=== PATIENT | female | born 1990 | race Caucasian/White ===

== ENCOUNTER 2021-07-12 11:12 | Emergency (ER) | payer OTHER, SELFPAY ==
--- NOTE | 2021-07-12 11:22 | PC.NURSE ---
Ambulatory out of waiting room. Pt has IV in place from EMS. Security called to bring pt in to have IV removed.
--- NOTE | 2021-07-12 11:29 | PC.NURSE ---
Digna SHIPLEY called to find pt to bring her in to have IV removed.
--- NOTE | 2021-07-12 11:51 | PC.NURSE ---
Brought back to ED by [place] police. Pt requesting to be seen.
== END 2021-07-12 11:22 | disposition left against medical advice (07) ==
DX: Z53.21 Procedure and treatment not carried out due to patient leaving prior to being seen by health care provider (principal)
CPT/HCPCS: 99199

== ENCOUNTER 2021-07-12 11:49 | Emergency (ER) | payer OTHER, SELFPAY ==
[2021-07-12 12:01] VITALS: BP 130/74; PULSE 116; RESP 16; TEMP 36.6; O2SAT 100
[2021-07-12 13:41] LABS: Add Urine Microscopic? YES; Appearance Urine Cloudy (Clear); Bacteria Urine Trace /hpf; Bilirubin Urine Negative (Negative); Blood Urine Negative (Negative); Color Urine Yellow (Yellow); Glucose Urine UA Negative (Negative); Ketones Urine 1+ mg/dL (Negative); Leukocyte Esterase Ur 2+ LEU/UL (Negative); Nitrate Urine Negative (Negative); Protein Urine 2+ mg/dL (Negative); Specific Grav Ur 1.018 (1.001-1.035)
--- NOTE | 2021-07-12 13:56 | PC.NURSE ---
Pt at Intake desk asking to have SL removed as she States I'M going to leave. SL removed pt tolerated well, ambulated out of ED with steady gait.
== END 2021-07-12 13:56 | disposition left against medical advice (07) ==
LOC: ANHED 14:35
PROVIDERS: Emergency Provider General Practice
DX: E86.0 Dehydration (principal)
CPT/HCPCS: 81001; 81025; 99199

== ENCOUNTER 2023-05-10 21:08 | Emergency (ER) | payer OTHER, SELFPAY ==
--- NOTE | ~2023-05-10 | XR_ITS ---
EXAM: XR finger 4th RT min 2V DATE: 05/10/2023 22:52 HISTORY: laceration from machete, r/o fb/fx . COMPARISON: None available. FINDINGS: Normal mineralization. No fracture or dislocation. No lytic or blastic lesion. Joint space s are maintained. No erosion or periosteal change. Soft tissues within normal limits. IMPRESSION: No acute osseous finding in the right fourth finger. No radiopaque foreign body. Reviewed, dictated and finalized at location K.
[2023-05-10 21:09] VITALS: BP 134/102; PULSE 145; RESP 16; TEMP 36.6; O2SAT 97
--- NOTE | 2023-05-10 21:25 | PC.NURSE ---
Patient's heart rate was obtained again at 150bpm. EKG ordered.
--- NOTE | 2023-05-10 21:26 | ECG_ITS ---
Measurements Intervals [place] Rate: 135 P: 69 IA: 130 QRS: 48 QRSD: 74 T: 49 QT: 361 QTc: 541 Interpretive Statements SINUS TACHYCARDIA OTHERWISE NORMAL ECG NO PREVIOUS ECG AVAILABLE FOR COMPARISON Electronically Signed On 05-11-2023 7:55:24 CDT by Elfego Mahajan M.D.
--- NOTE | 2023-05-10 22:45 | ED.WOUNDLAC ---
HPI - Wound/Laceration General Chief Complaint: Wound/Laceration <PRATIMA Thornton Last Filed: 05/10/23 23:48> Stated Complaint: R ring finger lac <PRATIMA Thornton Last Filed: 05/10/23 23:48> Time Seen by Provider: 05/10/23 22:21 <PRATIMA Thornton Last Filed: 05/10/23 23:48> Source: patient <PRATIMA Thornton Last Filed: 05/10/23 23:48> Mode of arrival: ambulatory <PRATIMA Thornton Last Filed: 05/10/23 23:48> Limitations: no limitations <PRATIMA Thornton Last Filed: 05/10/23 23:48> History of Present Illness HPI narrative: Patient is a 32-year-old female who presents to ED with report of a laceration to her right fourth digit. Patient reports she was sharpening her machete when her hand slipped and she sustained a laceration to her right fourth digit, just distal to her DIP joint. No active bleeding upon the time of my evaluation. Patient's tetanus status up-to-date around 7 years ago. Denies any numbness or tingling. <PRATIMA Thornton Last Filed: 05/10/23 23:48> Related Data Allergies/Adverse Reactions: Allergies Allergy/AdvReac Type Severity Reaction Status Date / Time No Known Allergies Allergy Verified 05/10/23 23:34 <PRATIMA Thornton Last Filed: 05/10/23 23:48> Review of Systems Review of Systems: CONSTITUTIONAL: Denies fever, chills, or sweats. SKIN: See HPI. MUSCULOSKELETAL: See HPI. NEUROLOGIC: Denies tingling, numbness, or weakness. <PRATIMA Thornton Last Filed: 05/10/23 23:48> All systems reviewed & are unremarkable except as noted in HPI and below <PRATIMA Thornton Last Filed: 05/10/23 23:48> Exam Narrative: GENERAL: Well appearing, well-nourished, non-toxic, in no acute distress. HEAD: Normocephalic, atraumatic. NECK: Supple. No adenopathy, no masses. RESPIRATORY: Airway patent, respirations nonlabored. CARDIOVASCULAR: Regular rate and rhythm without murmurs, rubs, or gallops. Radial pulses 2+ and equal bilaterally. MUSCULOSKELETAL: Moves all extremities. Strength/ROM intact without gross deformities. Full ROM of R 4th digit. Lateral laceration, approx 2cm, present to flexor surface of R 4th digit just distal to DIP joint extending slightly laterally to lateral finger edge. No active bleeding. Sensation intact. SKIN: Warm, dry, normal color. No rashes. NEURO: A&O X3. Speech clear. Cranial nerves II-XII grossly intact. Steady gait. No ataxic movements. PSYCHIATRIC: Appropriate mood and affect. Normal interaction. <Myrna Angel PA-C - Last Filed: 05/10/23 23:48> Course CERAMIC PLATER/PA Physician Supervision This is a was performed by both a physician and an APC. I performed all aspects of the MDM as documented w/ the following additions: 32-year-old female presenting with finger laceration. No injuries the deep structures. Wound was blocked and repaired with sutures. mulligan components of all procedures performed under my service supervision. All questions answered. Patient in agreement w/ disposition. <Justino Dennis MD - Last Filed: 05/15/23 03:26> Vital Signs Vital signs: Vital Signs Temperature 97.8 F 05/10/23 21:09 Pulse Rate 145 H 05/10/23 21:09 Respiratory Rate 16 05/10/23 21:09 Blood Pressure 134/102 H 05/10/23 21:09 Pulse Oximetry 97 05/10/23 21:09 Oxygen Delivery Room Air 05/10/23 21:09 Temperature 97.8 F 05/11/23 00:44 Pulse Rate 116 H 05/11/23 00:44 Respiratory Rate 16 05/11/23 00:44 Blood Pressure 133/96 H 05/11/23 00:44 Pulse Oximetry 100 05/11/23 00:44 Oxygen Delivery Room Air 05/10/23 21:09 <Myrna Angel PA-C - Last Filed: 05/10/23 23:48> Vital Signs Temperature 97.8 F 05/10/23 21:09 Pulse Rate 145 H 05/10/23 21:09 Respiratory Rate 16 05/10/23 21:09 Blood Pressure 134/102 H 05/10/23 21:09 Pulse Oximetry 97 05/10/23 21:09
[2023-05-10] MEDS: Please add drug allergy info to patient profile. 1 EACH XX (23:35)
[2023-05-10] MEDS: ACETAMINOPHEN 500 MG TABLET 1000 MG PO (23:52)
[2023-05-10] MEDS: IBUPROFEN 600 MG TABLET PO (23:52)
[2023-05-11] MEDS: Please add drug allergy info to patient profile. 1 EACH XX (00:31)
[2023-05-11 00:44] VITALS: BP 133/96; PULSE 116; RESP 16; TEMP 36.6; O2SAT 100
== END 2023-05-11 00:45 | disposition home or self-care (01) ==
PROVIDERS: Emergency Provider Physician Assistant
DX: S61.214A Laceration without foreign body of right ring finger without damage to nail, initial encounter (principal); W27.8XXA Contact with other nonpowered hand tool, initial encounter
CPT/HCPCS: 12001; 73140; 93005; 99283; A9270

== ENCOUNTER 2023-05-23 18:14 | Emergency (ER) | payer OTHER, SELFPAY ==
[2023-05-23 18:17] VITALS: BP 134/92; PULSE 121; RESP 16; TEMP 36.2; O2SAT 100
--- NOTE | 2023-05-23 19:58 | ED.GENADULT ---
HPI - General Adult General Chief complaint: Unspecified <PRATIMA Yen Last Filed: 05/24/23 03:59> Stated complaint: Stiches removed <PRATIMA Yen Last Filed: 05/24/23 03:59> Time Seen by Provider: 05/23/23 19:25 <PRATIMA Yen Last Filed: 05/24/23 03:59> History of Present Illness HPI narrative: 32-year-old female reports for evaluation to stitches removed to her right fourth finger. On chart review, stitches were placed on 05/10. She reports covering the laceration with a Band-Aid at all times, changing it once a day. She denies signs or symptoms of infection including redness, purulent drainage, fever, difficulty range of motion. <PRATIMA Yen Last Filed: 05/24/23 03:59> Related Data Allergies/adverse reactions: Allergies Allergy/AdvReac Type Severity Reaction Status Date / Time No Known Allergies Allergy Verified 05/10/23 23:34 <PRATIMA Yen Last Filed: 05/24/23 03:59> Review of Systems Review of Systems: CONSTITUTIONAL: Denies fever, chills EYES: Denies visual changes, redness, or discharge. ENT: Denies rhinorrhea, congestion, sore throat, or otalgia. CARDIOVASCULAR: Denies chest pain, palpitations, or edema. RESPIRATORY: Denies cough or dyspnea. GASTROINTESTINAL: Denies abdominal pain, nausea, vomiting, or diarrhea. GENITOURINARY: Denies dysuria or hematuria. SKIN: See HPI MUSCULOSKELETAL: Denies back pain, joint pain, or myalgia. NEUROLOGIC: Denies headache, numbness, dizziness, or weakness. PSYCHIATRIC: Denies anxiety or depression. <PRATIMA Yen Last Filed: 05/24/23 03:59> Exam Narrative: GENERAL: Well-appearing, in no acute distress. HEAD: Normocephalic NECK: Supple. CHEST: No respiratory distress. Clear to auscultation, no adventitious breath sounds. HEART: Regular rate and rhythm. No murmur heard. Normal peripheral pulses. EXTREMITIES: Normal range of motion. No edema. SKIN: Laceration healing well with [address] Surrounding skin is wet and macerated after Band-Aid removed. Cap refill less than 2. Sensation intact. Full range of motion of finger. No signs or symptoms of infection NEURO: No focal deficits. Alert and oriented x3. PSYCH: Normal mood and affect. <Sirena Mcdonald PA-C - Last Filed: 05/24/23 03:59> Course AUTOMOBILE DAMAGE APPRAISER/PA Physician Supervision This is a was performed by both a physician and an APC. I performed all aspects of the MDM as documented w/ the following additions: 32-year-old presenting for suture removal. Sutures removed.All questions answered. Patient in agreement w/ disposition. <Justino Dennis MD - Last Filed: 05/27/23 18:46> Vital Signs Vital signs: Vital Signs Temperature 97.1 F L 05/23/23 18:17 Pulse Rate 121 H 05/23/23 18:17 Respiratory Rate 16 05/23/23 18:17 Blood Pressure 134/92 H 05/23/23 18:17 Pulse Oximetry 100 05/23/23 18:17 Oxygen Delivery Room Air 05/23/23 18:17 Temperature 97.1 F L 05/23/23 18:17 Pulse Rate 119 H 05/23/23 20:34 Respiratory Rate 18 05/23/23 20:34 Blood Pressure 134/92 H 05/23/23 18:17 Pulse Oximetry 100 05/23/23 20:34 Oxygen Delivery Room Air 05/23/23 18:17 <Sirena Mcdonald PA-C - Last Filed: 05/24/23 03:59> Vital Signs Temperature 97.1 F L 05/23/23 18:17 Pulse Rate 121 H 05/23/23 18:17 Respiratory Rate 16 05/23/23 18:17 Blood Pressure 134/92 H 05/23/23 18:17 Pulse Oximetry 100 05/23/23 18:17 Oxygen Delivery Room Air 05/23/23 18:17 Temperature 97.1 F L 05/23/23 18:17 Pulse Rate 119 H 05/23/23 20:34 Respiratory Rate 18 05/23/23 20:34 Blood Pressure 134/92 H 05/23/23 18:17 Pulse Oximetry 05/23/23 20:34 Oxygen Delivery Room Air 05/23/23 18:17 <Justino Dennis MD - Last Filed: 05/27/23 18:46> Medical Decision Making MDM Narrative Medical decision making narrative: 32-year-old female reports for ev
[2023-05-23 20:34] VITALS: PULSE 119; RESP 18; O2SAT 100
== END 2023-05-23 20:35 | disposition home or self-care (01) ==
PROVIDERS: Emergency Provider Physician Assistant
DX: S61.214D Laceration without foreign body of right ring finger without damage to nail, subsequent encounter (principal); X58.XXXD Exposure to other specified factors, subsequent encounter
CPT/HCPCS: 15853; 99281